=== PATIENT | female | born 1995 ===

== ENCOUNTER 2021-07-08 12:21 | Inpatient (IN) | payer OTHER ==
[~2021-07-08] VITALS: Ht 160 cm; Wt 110.3 kg
[2021-07-08] MEDS ORDERED: OLANZapine 5 MG RAPDIS TABLET PO ONE (15:15)
[2021-07-08 16:59] LABS: COVID AG,FIA SOURCE NASOPHARYNGEAL
[2021-07-08] MEDS ORDERED: ZOLPIDEM TARTRATE 10 MG TABLET PO PRN (19:30)
[2021-07-08] MEDS ORDERED: ACETAMINOPHEN 325 MG TABLET PO PRN (20:30)
[2021-07-08] MEDS ORDERED: ONDANSETRON HCL 4 MG/2 ML VIAL IVP PRN (20:30)
[2021-07-08] MEDS ORDERED: 0.9% SODIUM CHLORIDE 10 ML SYRINGE IVP PRN (20:30)
[2021-07-08 20:56] LABS: BASOPHILS % (AUTO) 0.6 % (0.0-2.0); EOSINOPHILS % (AUTO) 0.3 % (1.0-6.0); HEMATOCRIT 44.3 % (36-46); MEAN CORPUSCULAR HEMOGLOBIN 29.9 pg (26.0-34.0); MEAN CORPUSCULAR HGB CONC 33.9 G/dL (31.0-37.0); MEAN CORPUSCULAR VOLUME 88 fL (80-100); MONOCYTES # (AUTO) 0.8 K/uL (0.1-1.0); MONOCYTES % (AUTO) 7.9 % (2.0-9.0); NEUTROPHILS # (AUTO) 6.7 K/uL (1.8-7.7); NEUTROPHILS % (AUTO) 70.2 % (40.0-70.0); PLATELET COUNT (AUTO) 357 K/uL (150-450); RED BLOOD CELL COUNT(AUTO) 5.03 MIL/uL (4.00-5.20); RED CELL DISTRIBUTION WIDTH 12.4 % (11.5-14.5)
[2021-07-08 21:05] LABS: ANION GAP 13 mmol/L (8-16); CALCIUM, TOTAL 8.7 mg/dL (8.8-10.5); CARBON DIOXIDE 23 mmol/L (22-29); CHLORIDE 105 mmol/L (98-107); CREATININE 0.89 mg/dL (0.60-1.30); GLOMERULAR FILTR. RATE CALC > 60 mL/min (>60); GLUCOSE,RANDOM 120 mg/dL (70-110); POTASSIUM 3.1 mmol/L (3.5-5.1); SODIUM SERUM 141 mmol/L (136-145); UREA NITROGEN, BLOOD 13 mg/dL (7-18)
[2021-07-08 21:20] LABS: ALANINE AMINOTRANSFERASE 47 U/L (12-78); ALBUMIN 4.2 g/dL (3.4-5.0); ALKALINE PHOSPHATASE 63 U/L (46-116); ASPARTATE AMINOTRANSFERASE 23 U/L (15-37); BILIRUBIN,TOTAL 0.5 mg/dL (0.1-1.0); FREE T4 (FREE THYROXINE) 1.21 ng/dL (0.76-1.46); HCG,QUANTITATIVE < 1 mIU/mL (0-6); THYROID STIMULATING HORMONE 1.04 uIU/mL (0.36-3.74); TOTAL PROTEIN, SERUM 8.1 g/dL (6.4-8.2)
[2021-07-08] MEDS ORDERED: POTASSIUM CHLORIDE 20 MEQ ER TABLET PO ONE (21:30)
[2021-07-09 00:58] LABS: AMPHET/METH SCREEN,URINE NEGATIVE (NEGATIVE); BARBITURATE SCREEN, URINE NEGATIVE (NEGATIVE); BENZODIAZEPINES SCREEN,URINE NEGATIVE (NEGATIVE); CANNABINOID SCREEN,URINE POSITIVE (NEGATIVE); COCAINE SCREEN,URINE NEGATIVE (NEGATIVE); METHADONE SCREEN, URINE NEGATIVE (NEGATIVE); OPIATE SCREEN,URINE NEGATIVE (NEGATIVE)
[2021-07-09 01:02] LABS: PHENCYCLIDINE SCREEN,URINE NEGATIVE (NEGATIVE)
[2021-07-09 02:21] LABS: CHOL/HDL RATIO 4.2 (3.9-5.7); CHOLESTEROL 212 mg/dL (131-200); HDL CHOLESTEROL 50 mg/dL (40-60); LDL CHOL (CALC.) 140 mg/dL (0-130); TRIGLYCERIDES 108 mg/dL (15-150)
[2021-07-09 03:29] LABS: APPEARANCE,URINE CLEAR (CLEAR); BILIRUBIN,URINE NEGATIVE (NEGATIVE); GLUCOSE, URINE (UA) NEGATIVE (NEGATIVE); KETONES,URINE 15 mg/dL (NEGATIVE); LEUKOCYTE ESTERASE ,URINE MODERATE (NEGATIVE); NITRATE,URINE NEGATIVE (NEGATIVE); OCCULT BLOOD,URINE LARGE (NEGATIVE); PH,URINE 6.5 (5.0-8.0); PROTEIN,URINE NEGATIVE (NEGATIVE)
[2021-07-09 03:50] LABS: BACTERIA,URINE Few /HPF (None Seen); RBC,URINE 0-2 /HPF (0-2); SQUAMOUS EPITHELIAL CELL,UR Few /LPF (None Seen)
[2021-07-09 08:04] VITALS: BP 127/96
[2021-07-09] MEDS ORDERED: BISACODYL 10 MG RECTAL RECTAL SUPPOSITORY PR PRN (10:00)
[2021-07-09] MEDS ORDERED: ACETAMINOPHEN 325 MG TABLET PO PRN (10:00)
[2021-07-09] MEDS ORDERED: MAGNESIUM HYDROXIDE SUSPENSION 30 ML UDCUP PO PRN (10:00)
[2021-07-09] MEDS ORDERED: ALBUTEROL SULFATE 2.5 MG/0.5 ML NEB SOLUTION NEB PRN (10:00)
[2021-07-09] MEDS ORDERED: ZOLPIDEM TARTRATE 5 MG TABLET PO PRN (10:00)
[2021-07-09] MEDS ORDERED: CefTRIAXone SODIUM 2 GM in DEXTROSE 5%-WATER 50 ML IV SCH (10:00)
[2021-07-09] MEDS ORDERED: IPRATROPIUM BROMIDE 0.5 MG/2.5 ML NEB SOLUTION NEB PRN (10:00)
[2021-07-09] MEDS: CEPHALEXIN MONOHYDRATE 500 MG CAPSULE PO SCH ×3 (13:00→21:00)
[2021-07-09] MEDS ORDERED: CEPH500B PO (15:24)
[2021-07-09] MEDS: HEPARIN SODIUM,PORCINE 5,000 UNITS/ML VIAL SQ SCH (16:00)
[2021-07-09 16:30] VITALS: BP 123/95
[2021-07-09 20:44] VITALS: BP 128/84
[2021-07-09 23:21] VITALS: BP 130/93
[2021-07-10 03:54] VITALS: BP 138/91
[2021-07-10 07:59] VITALS: BP 136/82
[2021-07-10] MEDS: HEPARIN SODIUM,PORCINE 5,000 UNITS/ML VIAL SQ SCH ×3 (08:00→16:00)
[2021-07-10] MEDS: CEPHALEXIN MONOHYDRATE 500 MG CAPSULE PO SCH ×4 (09:00→20:45)
[2021-07-10 15:35] VITALS: BP 129/83
[2021-07-10] MEDS ORDERED: LORazepam 2 MG/ML VIAL IM ONE (16:00)
[2021-07-10] MEDS ORDERED: DiphenhydrAMINE HCL 50 MG/ML VIAL IM ONE ×2 (16:00→16:30)
[2021-07-10] MEDS ORDERED: HALOPERIDOL LACTATE 5 MG/ML VIAL IM ONE ×2 (16:00)
[2021-07-10 20:53] VITALS: BP 128/99
[2021-07-11 00:45] VITALS: BP 107/66
[2021-07-11] MEDS: HEPARIN SODIUM,PORCINE 5,000 UNITS/ML VIAL SQ SCH ×2 (01:42→08:02)
[2021-07-11] MEDS: CEPHALEXIN MONOHYDRATE 500 MG CAPSULE PO SCH ×2 (08:02→13:14)
[2021-07-11 08:17] VITALS: BP 145/95
[2021-07-11] MEDS: LORazepam 2 MG TABLET PO PRN ×2 (13:54→14:53)
[2021-07-11] MEDS: HALOPERIDOL 5 MG TABLET PO PRN ×2 (13:54→14:53)
[2021-07-11 15:49] VITALS: BP 142/93
[2021-07-11] MEDS ORDERED: GABA-1181 PO (17:19)
[2021-07-11] MEDS ORDERED: OLAN5TAB52 PO (17:19)
[2021-07-11] MEDS ORDERED: HALO5TAB2 PO (17:20)
[2021-07-11] MEDS ORDERED: LORA-1001 PO (17:21)
[2021-07-11] MEDS ORDERED: ZOLP-280 PO (17:22)
[2021-07-11] MEDS ORDERED: GABAPENTIN 300 MG CAPSULE PO SCH (21:00)
[2021-07-11] MEDS ORDERED: OLANZapine 5 MG TABLET PO SCH (21:00)
== END 2021-07-11 17:00 | DRG 690 ==
LOC: EMS 12:24 → 6N 07-09 07:35
PROVIDERS: ADMIT Hospitalist; ATTEND Hospitalist
DX: N39.0 Urinary tract infection, site not specified (principal); Z20.822 Contact with and (suspected) exposure to COVID-19; F28 Other psychotic disorder not due to a substance or known physiological condition; E87.6 Hypokalemia; F31.9 Bipolar disorder, unspecified; Z81.8 Family history of other mental and behavioral disorders
CPT/HCPCS: 80053; 80061; 81001; 84132; 84439; 84443; 84702; 84703; 85025; 99285; J0696; J1200; J1630; J1644; J2060; J2405; J7060

== ENCOUNTER 2021-07-11 14:20 | Inpatient (IN) | payer OTHER ==
[~2021-07-11] VITALS: Ht 160 cm; Wt 104.0 kg
[~2021-07-11 14:20] MED LIST: CEPH500B PO
[2021-07-11] MEDS ORDERED: GABA-1181 PO (17:19)
[2021-07-11] MEDS ORDERED: OLAN5TAB52 PO (17:19)
[2021-07-11] MEDS ORDERED: HALO5TAB2 PO (17:20)
[2021-07-11] MEDS ORDERED: LORA-1001 PO (17:21)
[2021-07-11] MEDS ORDERED: ZOLP-280 PO (17:22)
[2021-07-11] MEDS ORDERED: ZOLPIDEM TARTRATE 10 MG TABLET PO PRN (17:45)
[2021-07-11] MEDS ORDERED: HALOPERIDOL 5 MG TABLET PO PRN (17:45)
[2021-07-11 18:05] VITALS: BP 132/60
[2021-07-11] MEDS: LORazepam 2 MG TABLET PO PRN (19:25)
[2021-07-12 01:18] VITALS: BP 110/80
[2021-07-12 07:11] LABS: BASOPHILS % (AUTO) 0.7 % (0.0-2.0); EOSINOPHILS % (AUTO) 0.8 % (1.0-6.0); HEMATOCRIT 45.7 % (36-46); HEMOGLOBIN 15.6 g/dL (12.0-16.0); LYMPHOCYTES # (AUTO) 1.3 K/uL (1.0-4.8); LYMPHOCYTES % (AUTO) 14.2 % (22.0-44.0); MEAN CORPUSCULAR HEMOGLOBIN 29.6 pg (26.0-34.0); MEAN CORPUSCULAR VOLUME 87 fL (80-100); MONOCYTES % (AUTO) 10.7 % (2.0-9.0); NEUTROPHILS # (AUTO) 6.7 K/uL (1.8-7.7); NEUTROPHILS % (AUTO) 73.6 % (40.0-70.0); PLATELET COUNT (AUTO) 342 K/uL (150-450); RED BLOOD CELL COUNT(AUTO) 5.25 MIL/uL (4.00-5.20); RED CELL DISTRIBUTION WIDTH 12.5 % (11.5-14.5)
[2021-07-12 07:20] LABS: HEMOGLOBIN A1C 4.9 % (3.8-5.6)
[2021-07-12 08:02] LABS: ALANINE AMINOTRANSFERASE 89 U/L (12-78); ALBUMIN 4.2 g/dL (3.4-5.0); ALKALINE PHOSPHATASE 73 U/L (46-116); ANION GAP 10 mmol/L (8-16); ASPARTATE AMINOTRANSFERASE 35 U/L (15-37); BILIRUBIN,TOTAL 0.5 mg/dL (0.1-1.0); CALCIUM, TOTAL 9.4 mg/dL (8.8-10.5); CARBON DIOXIDE 25 mmol/L (22-29); CHLORIDE 103 mmol/L (98-107); CHOL/HDL RATIO 4.9 (3.9-5.7); CHOLESTEROL 195 mg/dL (131-200); CREATININE 0.84 mg/dL (0.60-1.30); FREE T4 (FREE THYROXINE) 1.37 ng/dL (0.76-1.46); GLOMERULAR FILTR. RATE CALC > 60 mL/min (>60); GLUCOSE,RANDOM 105 mg/dL (70-110); HCG,QUANTITATIVE < 1 mIU/mL (0-6); HDL CHOLESTEROL 40 mg/dL (40-60); LDL CHOL (CALC.) 123 mg/dL (0-130); POTASSIUM 3.9 mmol/L (3.5-5.1); SODIUM SERUM 138 mmol/L (136-145); THYROID STIMULATING HORMONE 1.07 uIU/mL (0.36-3.74); TOTAL PROTEIN, SERUM 8.1 g/dL (6.4-8.2); TRIGLYCERIDES 158 mg/dL (15-150); UREA NITROGEN, BLOOD 16 mg/dL (7-18)
[2021-07-12 08:11] VITALS: BP 148/99
[2021-07-12] MEDS: OLANZapine 5 MG TABLET PO SCH ×2 (08:17→16:34)
[2021-07-12] MEDS: GABAPENTIN 300 MG CAPSULE PO SCH ×2 (08:17→16:34)
[2021-07-12] MEDS ORDERED: GuaiFENesin/D-METHORPHAN [SUGAR-FREE] 200-20MG/10 ML SYRUP UDCUP PO PRN (08:30)
[2021-07-12] MEDS ORDERED: ALBUTEROL SULFATE HFA 90 MCG/PUFF 8 GM INHALER IH PRN (08:30)
[2021-07-12] MEDS ORDERED: ACETAMINOPHEN 325 MG TABLET PO PRN (08:30)
[2021-07-12] MEDS ORDERED: LOPERAMIDE HCL 2 MG CAPSULE PO PRN (08:30)
[2021-07-12] MEDS ORDERED: PETROLATUM,WHITE 28 GM JELLY TP PRN (08:30)
[2021-07-12] MEDS ORDERED: IBUPROFEN 400 MG TABLET PO PRN (08:30)
[2021-07-12] MEDS ORDERED: NICOTINE 14 MG/24 HOUR PATCH TD PRN (08:30)
[2021-07-12] MEDS ORDERED: ONDANSETRON HCL 4 MG TABLET PO PRN (08:30)
[2021-07-12] MEDS ORDERED: MAG HYDROX/AL HYDROX/SIMETH ES 30 ML SUSPENSION UDCUP PO PRN (08:30)
[2021-07-12] MEDS ORDERED: MAGNESIUM HYDROXIDE SUSPENSION 30 ML UDCUP PO PRN (08:30)
[2021-07-12] MEDS ORDERED: DOCUSATE SODIUM 100 MG CAPSULE PO PRN (08:30)
[2021-07-12] MEDS ORDERED: CloNIDine HCL 0.1 MG TABLET PO PRN (08:30)
[2021-07-12] MEDS: BusPIRone HCL 5 MG TABLET PO SCH ×2 (12:55→16:54)
[2021-07-12 16:03] VITALS: BP 125/77
[2021-07-13 00:30] VITALS: BP 138/98
[2021-07-13] MEDS: LORazepam 2 MG TABLET PO PRN (00:36)
[2021-07-13 08:09] VITALS: BP 123/89
[2021-07-13] MEDS: BusPIRone HCL 5 MG TABLET PO SCH (08:29)
[2021-07-13] MEDS: GABAPENTIN 300 MG CAPSULE PO SCH (08:30)
[2021-07-13] MEDS: OLANZapine 5 MG TABLET PO SCH (08:30)
[2021-07-13] MEDS ORDERED: BUSP5TAB20 PO (10:41)
== END 2021-07-13 12:16 | disposition home or self-care (01) | DRG 885 ==
LOC: B3A 17:46
PROVIDERS: ADMIT Psychiatry & Neurology Psychiatry; ATTEND Psychiatry & Neurology Psychiatry
DX: F29 Unspecified psychosis not due to a substance or known physiological condition (principal); Z68.41 Body mass index [BMI] 40.0-44.9, adult; E66.9 Obesity, unspecified; E78.5 Hyperlipidemia, unspecified; F31.9 Bipolar disorder, unspecified; R03.0 Elevated blood-pressure reading, without diagnosis of hypertension; R48.8 Other symbolic dysfunctions; Z81.8 Family history of other mental and behavioral disorders; Z79.899 Other long term (current) drug therapy
CPT/HCPCS: 80053; 80061; 83036; 84439; 84443; 84702; 85025; 87081